=== PATIENT | female | born 1990 | race African-American/Black ===

== ENCOUNTER 2021-06-29 08:36 | Emergency (ER) | payer SELFPAY ==
[~2021-06-29] VITALS: Ht 157.5 cm; Wt 83.0 kg
[2021-06-29] MEDS ORDERED: AMOXICILLIN/POTASSIUM CLAVULANATE 875/125MG TAB PO ONE (09:00)
[2021-06-29] MEDS ORDERED: ACETAMINOPHEN 325MG TABLET PO ONE (09:00)
[2021-06-29] MEDS ORDERED: IBUPROFEN 400MG TABLET PO ONE (09:00)
[2021-06-29] MEDS ORDERED: IBUP-2028 MT (09:40)
[2021-06-29] MEDS ORDERED: TOPUD PO (09:40)
[2021-06-29] MEDS ORDERED: AMOX-424 MT (09:40)
[2021-06-29 10:10] VITALS: BP 121/90
== END 2021-06-29 10:10 | disposition home or self-care (01) ==
LOC: ER 08:36
DX: K04.7 Periapical abscess without sinus (principal); K02.9 Dental caries, unspecified
CPT/HCPCS: 81025; 99284